=== PATIENT | male | born 1940 | race Caucasian/White ===

== ENCOUNTER 2019-11-28 10:01 | Outpatient (CLI) | payer MEDICARE, BC | END 2019-11-28 23:59 | disposition home or self-care (01) | LOC: CFH 10:01 | PROVIDERS: ATTEND Psychiatry & Neurology Neurology | DX: M47.27 Other spondylosis with radiculopathy, lumbosacral region (principal); M48.07 Spinal stenosis, lumbosacral region; M25.78 Osteophyte, vertebrae | CPT/HCPCS: 72100 ==

== ENCOUNTER 2021-05-07 10:15 | Outpatient (CLI) | payer MEDICARE, BC ==
[2021-05-07] MEDS ORDERED: AMAN100C7 PO (10:50)
[2021-05-07] MEDS ORDERED: ISTR40TA PO (10:50)
[2021-05-07] MEDS ORDERED: VIT1CAPS16 PO (10:50)
[2021-05-07] MEDS ORDERED: CARB1TAB22 PO (10:50)
[2021-05-07 12:34] LABS: BASOPHILS % (AUTO) 1 % (0-1); EOSINOPHILS % (AUTO) 2 % (1-7); LYMPHOCYTES % (AUTO) 20 % (22-44); MEAN CORPUSCULAR HEMOGLOBIN 31.6 pg (27.5-34.5); MEAN CORPUSCULAR HGB CONC 33.3 g/dL (33.2-36.2); MEAN PLATELET VOLUME 7.7 fL (7.4-10.4); MONOCYTES % (AUTO) 12 % (2-9); NEUTROPHILS % (AUTO) 65 % (42-75); PLATELET COUNT 158 x10^3/uL (130-400); RED BLOOD COUNT 4.56 x10^6/uL (4.38-5.82); RED CELL DISTRIBUTION WIDTH 13.9 % (9.4-14.8)
[2021-05-07 12:37] LABS: ANION GAP 4 mmol/L (5-15); CALCIUM 8.9 mg/dL (8.5-10.1); CHLORIDE 110 mmol/L (98-107); CREATININE 1.08 mg/dL (0.7-1.3)
[2021-05-07 12:39] LABS: INTERNATIONAL NORMALIZED RATIO 1.15 (0.93-1.1); PROTHROMBIN TIME 12.3 Seconds (9.6-11.5)
== END 2021-05-07 23:59 | disposition home or self-care (01) ==
LOC: STAR 10:15
PROVIDERS: ATTEND Neurological Surgery
DX: Z01.818 Encounter for other preprocedural examination (principal); T85.698A Other mechanical complication of other specified internal prosthetic devices, implants and grafts, initial encounter; I44.4 Left anterior fascicular block; Z20.822 Contact with and (suspected) exposure to COVID-19; Y83.8 Other surgical procedures as the cause of abnormal reaction of the patient, or of later complication, without mention of misadventure at the time of the procedure; Y92.89 Other specified places as the place of occurrence of the external cause
CPT/HCPCS: 36415; 80048; 85025; 85610; 85730; 93005; U0003; U0005

== ENCOUNTER 2021-05-13 09:52 | Day surgery (SDC) | payer MEDICARE, BC ==
[~2021-05-13] VITALS: Ht 175.3 cm; Wt 73.6 kg
[~2021-05-13 09:52] MED LIST: AMAN100C7 PO; CARB1TAB22 PO; ISTR40TA PO; VIT1CAPS16 PO
[2021-05-13 11:00] VITALS: BP 161/81
[2021-05-13] MEDS ORDERED: CHLORHEXIDINE 15 ML UDC PO ONE (11:00)
[2021-05-13] MEDS ORDERED: LACTATED RINGERS 1,000 ML IV SCH (11:00)
[2021-05-13 11:20] LABS: BASOPHILS % (AUTO) 1 % (0-1); EOSINOPHILS % (AUTO) 3 % (1-7); LYMPHOCYTES % (AUTO) 20 % (22-44); MEAN CORPUSCULAR HEMOGLOBIN 31.9 pg (27.5-34.5); MEAN CORPUSCULAR HGB CONC 34.1 g/dL (33.2-36.2); MEAN PLATELET VOLUME 7.6 fL (7.4-10.4); MONOCYTES % (AUTO) 12 % (2-9); NEUTROPHILS % (AUTO) 64 % (42-75); PLATELET COUNT 150 x10^3/uL (130-400); RED BLOOD COUNT 4.44 x10^6/uL (4.38-5.82); RED CELL DISTRIBUTION WIDTH 13.9 % (9.4-14.8)
[2021-05-13] MEDS ORDERED: EPINEPHRINE 1 MG/ML, 1ML ONE (11:31)
[2021-05-13] MEDS ORDERED: BUPIVACAINE/PF 0.5% ONE (11:31)
[2021-05-13] MEDS ORDERED: BACITRACIN 50,000 UNIT ONE (11:32)
[2021-05-13] MEDS ORDERED: METHOCARBAMOL 1,000 MG in DEXTROSE 5% 100 ML IV PRN (12:00)
[2021-05-13] MEDS ORDERED: PROMETHAZINE 25 MG/ML, 1ML IVPush PRN (12:00)
[2021-05-13] MEDS ORDERED: FENTANYL PF 100 MCG/2ML IV PRN (12:00)
[2021-05-13] MEDS ORDERED: HYDROmorphone 1 MG/ML, 1ML INJ IVPush PRN (12:00)
[2021-05-13] MEDS ORDERED: LORazepam 2 MG/ML, 1ML IVPush PRN (12:00)
[2021-05-13] MEDS ORDERED: ONDANSETRON 2MG/ML, 2ML IVPush PRN (12:00)
[2021-05-13] MEDS ORDERED: ACETAMINOPHEN 325 MG TABLET PO PRN (12:00)
[2021-05-13] MEDS ORDERED: OXYcodone 5 MG/5 ML ORAL.SOL UDC PO PRN (12:00)
[2021-05-13] MEDS ORDERED: LABETALOL 5MG/ML, 20ML IV PRN (12:00)
[2021-05-13] MEDS ORDERED: hydrALAzine 20 MG/ML, 1ML IV PRN (12:00)
[2021-05-13] MEDS ORDERED: MEPERIDINE/PF 25MG/0.5ML IVPush PRN (12:00)
[2021-05-13] MEDS ORDERED: FENTANYL PF 250 MCG/5ML ONE (12:59)
[2021-05-13] MEDS ORDERED: KETOROLAC 30 MG/1 ML ONE (13:30)
[2021-05-13] MEDS ORDERED: ONDANSETRON 2MG/ML, 2ML ONE (13:50)
[2021-05-13] MEDS ORDERED: PROPOFOL 10 MG/ML, 20ML ONE (13:50)
[2021-05-13] MEDS ORDERED: CEFAZOLIN 1,000 MG ONE (13:50)
[2021-05-13] MEDS ORDERED: NEOSTIGMINE 1 MG/ML, 10ML ONE (13:50)
[2021-05-13] MEDS ORDERED: GLYCOPYRROLATE 0.2MG/1ML, 5ML ONE (13:50)
[2021-05-13] MEDS ORDERED: ROCURONIUM 10MG/ML,5ML ONE (13:50)
[2021-05-13] MEDS ORDERED: DEXAMETHASONE 4 MG/ML, 1ML ONE (13:50)
[2021-05-13] MEDS ORDERED: SUCCINYLCHOLINE 20 MG/ML, 10ML ONE (13:50)
[2021-05-13] MEDS ORDERED: LABETALOL 5MG/ML, 20ML ONE (15:28)
[2021-05-13] MEDS ORDERED: AMANTADINE 100 MG CAPSULE PO SCH (16:00)
[2021-05-13] MEDS ORDERED: CARBIDOPA/LEVODOPA 25 MG/100 MG TABLET PO SCH (21:00)
== END 2021-05-13 16:47 | disposition home or self-care (01) ==
LOC: OUT 09:52
PROVIDERS: ATTEND Neurological Surgery
DX: Z45.42 Encounter for adjustment and management of neurostimulator (principal); G20 Parkinson's disease; M19.90 Unspecified osteoarthritis, unspecified site; Z79.899 Other long term (current) drug therapy; Z83.3 Family history of diabetes mellitus
CPT/HCPCS: 36415; 61886; 85025; 86850; 86900; 86902; C1767; C1883; J0171; J0690; J1100; J1885; J2405; J2704; J2710; J3010; J7120; J0330